=== PATIENT | female | born 1985 | race Two or more races ===

== ENCOUNTER 2021-11-03 14:20 | Inpatient (IN) ==
[2021-11-03] MEDS ORDERED: OXYTOCIN 30 UNITS/500 ML BAG IV PRN ×2 (15:26→15:48)
--- NOTE | 2021-11-03 15:36 | History & Physical Report ---
Date of Service November 03, 2021 Assessment & Plan (1) Spontaneous rupture of amniotic membranes: Plan: 36-year-old -0-1-0 at 38 weeks and 2 days of gestation presenting with spontaneous rupture of membranes at term, was complicated by GDM A2, on insulin, GBS positive, Obesity during , Vital signs stable afebrile, heart rate reassuring, Not in labor, no regular contractions but favorable cervix, Recommended admission, labs, vancomycin for GBS, fingersticks and cover with insulin and induction of labor for SROM at term, recommended oxytocin per protocol, Patient understands all and agrees with plan and recommendations, All questions were answered. (2) GBS (group B Streptococcus carrier), +RV culture, currently : History of Present Illness Primary Care Provider: NO PCP Patient is a 36-year-old -0-1-0 at 38 weeks and 2 days of gestation who was sent from office for gush of leakage of fluid which happened around 1:30 PM this afternoon. She was at the office for a routine OB visit and NST testing for GDM A2 and obesity during . While she was in the office she use the bathroom and had a big gush of fluid on the floor and has been leaking since then. It was clear with no blood. Patient denies contractions, abdominal pain, fever chills, nausea or vomiting. She reports good movements. has been complicated by, 1. Gestational diabetes on insulin, GDM A2, on 15 units of long-acting insulin at night, 2. GBS positive, allergic to penicillin, 3. Obesity during Allergies Allergy/AdvReac Type Severity Reaction Status Date / Time Penicillins Allergy Hives Verified 11/03/21 14:51 Sulfa (Sulfonamide Allergy Hives Verified 11/03/21 14:51 Antibiotics) Home Medications Medication Instructions Recorded Confirmed Type docusate sodium 50 mg capsule 50 mg PO DAILY 11/03/21 11/03/21 History insulin glargine 100 unit/mL (3 15 unit SUBCUT QPM 11/03/21 11/03/21 History mL) subcutaneous pen (Lantus Solostar U-100 Insulin) prenat.vits,larry,[id number] 1 tab PO DAILY 11/03/21 11/03/21 History Patient History Medical History (Updated 11/03/21 @ 15:34 by Annalisa Valadez MD) Abscess Gestational diabetes Surgical History H/O wisdom tooth extraction Social History Smoking Status: Never smoker Hx Alcohol Use: No Hx Substance Use: No Preferred Language: [place] Communication Ability: Effective Superintendent Overhead Distribution Required: No Beliefs That Will Affect Care: None marital status: Single Current Living Situation: Spouse Other Information That Helps Us Care for You: No Feels Safe at Home: Yes Safety Concerns: Feels Safe At This Time Assistive Devices: None OB History h/o first trimester SAB in 2019 PATIENT SUPPORT ASSISTANT History Chun denies history of genital herpes or gonorrhea. She had chlamydia in 2019 and has been treated and tested negative after. She is with a different partner now but she has had him only during this . Her chlamydia culture was negative during this . Review of Systems as per Subjective / HPI Physical Exam Constitutional: well developed, well nourished and + obese Not in acute distress, comfortable Gastrointestinal (Abdomen): normal bowel sounds, soft, nontender, no hepatosplenomegaly (Gravid, nontender, Joce 7 to 8 pounds) Genitourinary: normal external appearance (Wet) Speculum/Bimanual Exam: normal appearance of the vagina (Grossly ruptured clear amniotic fluid, nitrazine positive) OB Exam Abdomen: + vertex Manual OB Exam: + cervical dilation 3 cm, + cervical effacement 40% and + station -2 OB Exam Monitor Tracing: + external uterine monitor used (No contractions) and + category I Results & Data ([facility]) Vital Signs (Past 12 Hours) Vital Signs Temp Pulse Resp BP 11/03/21 15:00 93 H 138/78 11/03/21 14:54 36.7 C 20 11/03/21 14:37 112 H 135/89
[2021-11-03] MEDS ORDERED: VANCOMYCIN HCL 2,000 MG in SODIUM CHLORIDE 0.9% 500 ML IV STA (15:43)
[2021-11-03 15:50] LABS: Hematocrit (blood only) 35.1 % (37-47); Hemoglobin 11.8 g/dL (12.0-16.0); Mean Corpuscular Hemoglobin 30.3 pg (25-34); Mean Corpuscular Hgb Conc 33.6 g/dL (32-36); Mean Platelet Volume 11.4 fL (7.4-10.4); Platelet Count 183 K/uL (130-400); RDW Coefficient of Variation 14.2 % (11.5-14.5); RDW Standard Deviation 47.1 fL (36.4-46.3); White Blood Count 7.37 K/uL (4.8-10.8)
[2021-11-03 16:19] LABS: Albumin Globulin Ratio 1.1 (0.9-2); Albumin Level 3.3 gm/dl (3.4-5.0); BUN Creatinine Ratio 23.5 (10-20); Bilirubin,Total 0.2 mg/dl (0.2-1.0); Calcium 8.8 mg/dl (8.5-10.1); Creatinine Clr Calc Pharmacy 114.7 ml/min; Est GFR (African American) 102.9 ml/min; Est GFR (Non-African American) 88.8 ml/min; Globulin 3.1 gm/dl (2.5-4.0); Potassium 4.2 mmol/L (3.5-5.1); Total Protein 6.4 gm/dl (6.0-8.3)
--- NOTE | 2021-11-03 18:18 | Obstetrical Progress Note ---
Date of Service November 03, 2021 Assessment & Plan Admission and Anticipated Discharge Date Admission Date: November 03, 2021 Subjective Patient is reevaluated Feels well, no complaints No ctxs/abdominal pain Ate dinner Vancomycin is being given FHR categ I Bed side US: vertex Labs normal: Lab Results 11/03/21 11/03/21 11/03/21 Range/Units 15:36 15:36 15:36 WBC 7.37 (4.8-10.8) K/uL RBC 3.90 L (4.2-5.4) M/uL Hgb 11.8 L (12.0-16.0) g/dL Hct 35.1 L (37-47) % MCV 90.0 (80-100) fL MCH 30.3 (25-34) pg MCHC 33.6 (32-36) g/dL RDW Std Deviation 47.1 H (36.4-46.3) fL RDW Coeff of Brenda 14.2 (11.5-14.5) % Plt Count 183 (130-400) K/uL MPV 11.4 H (7.4-10.4) fL Sodium 135 L (136-145) mmol/L Potassium 4.2 (3.5-5.1) mmol/L Chloride 106 (98-107) mmol/L Carbon Dioxide 23 (21-32) mmol/L Anion Gap 6 (3-11) BUN 20 (6-23) mg/dl Creatinine 0.85 (0.6-1.2) mg/dl Est Cr Clr Drug Dosing 114.7 ml/min Est GFR ( Amer) 102.9 ml/min Est GFR (Non-Af Amer) 88.8 ml/min BUN/Creatinine Ratio 23.5 H (10-20) Glucose 90 (70-99(Fasting)) mg/dl Calcium 8.8 (8.5-10.1) mg/dl Total Bilirubin 0.2 (0.2-1.0) mg/dl AST 12 L (13-39) U/L ALT 9 (7-52) U/L Alkaline Phosphatase 88 (34-104) U/L Total Protein 6.4 (6.0-8.3) gm/dl Albumin 3.3 L (3.4-5.0) gm/dl Globulin 3.1 (2.5-4.0) gm/dl Albumin/Globulin Ratio 1.1 (0.9-2) SARS-CoV-2, RNA, NAAT (NEGATIVE) Blood Type A Positive Antibody Screen NEGATIVE 11/03/21 Range/Units 15:50 WBC (4.8-10.8) K/uL RBC (4.2-5.4) M/uL Hgb (12.0-16.0) g/dL Hct (37-47) % MCV (80-100) fL MCH (25-34) pg MCHC (32-36) g/dL RDW Std Deviation (36.4-46.3) fL RDW Coeff of Brenda (11.5-14.5) % Plt Count (130-400) K/uL MPV (7.4-10.4) fL Sodium (136-145) mmol/L Potassium (3.5-5.1) mmol/L Chloride (98-107) mmol/L Carbon Dioxide (21-32) mmol/L Anion Gap (3-11) BUN (6-23) mg/dl Creatinine (0.6-1.2) mg/dl Est Cr Clr Drug Dosing ml/min Est GFR ( Amer) ml/min Est GFR (Non-Af Amer) ml/min BUN/Creatinine Ratio (10-20) Glucose (70-99(Fasting)) mg/dl Calcium (8.5-10.1) mg/dl Total Bilirubin (0.2-1.0) mg/dl AST (13-39) U/L ALT (7-52) U/L Alkaline Phosphatase (34-104) U/L Total Protein (6.0-8.3) gm/dl Albumin (3.4-5.0) gm/dl Globulin (2.5-4.0) gm/dl Albumin/Globulin Ratio (0.9-2) SARS-CoV-2, RNA, NAAT NEGATIVE (NEGATIVE) Blood Type Antibody Screen Plan FS 2 hours after dinner Start low dose Oxytocin per protocol Results & Data ([facility]) Vital Signs (Past 12 Hours) Vital Signs Temp Pulse Resp BP 11/03/21 15:00 93 H 138/78 11/03/21 14:54 36.7 C 20 11/03/21 14:37 112 H 135/89
--- NOTE | 2021-11-03 22:01 | Obstetrical Progress Note ---
Date of Service November 03, 2021 Assessment & Plan Admission and Anticipated Discharge Date Admission Date: November 03, 2021 Subjective Patient started to feel contractions every 3 minutes, mildly painful but she d oes not need any pain medication or epidural. Still leaking clear fluid. Baby is moving. Vital signs stable afebrile, heart rate category 1, [place] is monitoring contractions every 2 to 3 minutes, oxytocin is at 14 mIU/min, Cervix is 3 to 4 cm dilated, 50% effaced, head is at -3 station, Continue to monitor closely, Continue with IV vancomycin and oxytocin. Results & Data ([facility]) Vital Signs (Past 12 Hours) Vital Signs Temp Pulse Resp BP Pulse Ox 11/03/21 21:58 64 140/84 11/03/21 21:57 62 99 11/03/21 21:49 36.4 C L 16 11/03/21 21:26 68 128/73 11/03/21 20:55 67 102/68 11/03/21 20:30 36.4 C L 18 11/03/21 20:25 70 125/78 11/03/21 19:55 58 L 128/71 11/03/21 19:25 36.6 C 16 11/03/21 19:08 67 141/81 H 11/03/21 15:00 93 H 138/78 11/03/21 14:54 36.7 C 20 11/03/21 14:37 112 H 135/89
[2021-11-03] MEDS ORDERED: VANCOMYCIN CONSULT ACTIVE PRN (22:09)
[2021-11-03] MEDS ORDERED: ePHEDrine sulfate 50 MG/ML AMP ONE (23:09)
[2021-11-03] MEDS ORDERED: fentaNYL citrate 100 MCG/2 ML VIAL ONE ×2 (23:09→23:54)
[2021-11-03] MEDS ORDERED: BUPIVACAINE 0.25% 30 ML VIAL ONE (23:10)
[2021-11-03] MEDS ORDERED: SODIUM CHLORIDE 0.9% INJ 10 ML VIAL ONE (23:10)
[2021-11-03] MEDS ORDERED: fentaNYL 2MCG/ML ROPIVACAINE 1.25MG/ML 100 ML BAG EPI ONE (23:10)
[2021-11-03] MEDS: LACTATED RINGER'S 1,000 ML IV PRN (23:25)
[2021-11-03] MEDS ORDERED: ONDANSETRON INJ 2 MG/ML 2 ML VIAL IV PRN (23:46)
[2021-11-03] MEDS ORDERED: NALOXONE HCL 1 MG in SODIUM CHLORIDE 0.9% 1000ML 1,000 ML IV PRN (23:46)
[2021-11-03] MEDS ORDERED: NALBUPHINE HCL INJ 10 MG/ML AMP IV PRN (23:46)
[2021-11-03] MEDS ORDERED: NALOXONE HCL 0.4 MG/1 ML VIAL/CARP IV PRN (23:46)
[2021-11-03] MEDS ORDERED: diphenhydrAMINE 50 MG/ML VIAL IV PRN (23:46)
[2021-11-03] MEDS ORDERED: ePHEDrine sulfate 50 MG/ML AMP IV PRN (23:46)
[2021-11-03] MEDS ORDERED: fentaNYL 2MCG/ML ROPIVACAINE 1.25MG/ML 100 ML BAG EPI PRN (23:46)
--- NOTE | 2021-11-03 23:48 | Anesthesiology Consultation ---
Date of Service November 03, 2021 Assessment & Plan Chart Review Chart Review: Patient NOT seen in Pre Admission Testing and Acceptable Risk for Labor Epidural Consults Requested none ASA ASA3 Proposed Anesthesia Anesthesia Type: Labor Epidural and CSE Risk / Benefits Reviewed With: PT / POA / Parent / Guardian, Accepts Plan and Informed Consent Obtained History Height/Weight Height: 5 ft 5 in Weight: 111.13 kg Allergies Allergy/AdvReac Type Severity Reaction Status Date / Time Penicillins Allergy Hives Verified 11/03/21 14:51 Sulfa (Sulfonamide Allergy Hives Verified 11/03/21 14:51 Antibiotics) Medications Home Medications Medication Instructions Recorded Confirmed Last Taken docusate sodium 50 mg capsule 50 mg PO DAILY 11/03/21 11/03/21 Unknown insulin glargine 100 unit/mL (3 15 unit SUBCUT QPM 11/03/21 11/03/21 1 Day Ago mL) subcutaneous pen (Lantus ~11/02/21 Solostar U-100 Insulin) prenat.vits,larry,[id number] 1 tab PO DAILY 11/03/21 11/03/21 Unknown Active Medications Generic Name Dose Route Start Last Admin Trade Name Freq PRN Reason Stop Dose Admin Lactated Ringer's 1,000 mls @ 150 mls/hr 11/03/21 15:26 11/03/21 23:25 Lr IV 11/05/21 15:25 999 mls/hr .[id number] PRN Administration L&D Protocol Protocol Oxytocin 30 units in 500 mls @ 12 mls/hr 11/03/21 15:48 11/03/21 21:13 Pitocin IV 11/05/21 15:47 0.72 units/hr .Q24H PRN 12 mls/hr Labor Induction/Augmentation Titration Protocol 0.72 UNITS/HR NPO Date Last Intake of Fluids: 11/03/21 Time Last Intake of Fluids: 23:00 Date Last Intake of Solids: 11/03/21 Time Last Intake of Solids: 13:00 Past Medical History Medical History Abscess Gestational diabetes Obesity Exercise / Class Metabolic Activity II 4-5 Yardwork/Stairs/Walk up hill Past Surgical History Surgical History H/O wisdom tooth extraction Past Anesthesia History No Hx of Anesthesia Complications and No Family Hx of Anesthesia Complications History of PONV No Hx of PONV and No Hx of Motion Sickness Social History Smoking Status: Never smoker Hx Alcohol Use: No Hx Substance Use: No substance use type: does not use Review of Systems no chest pain or sob Physical Exam Vital Signs Last Vital Signs Temp 36.4 C L 11/03/21 22:00 Pulse 82 11/03/21 23:42 Resp 16 11/03/21 22:00 BP 139/80 11/03/21 23:42 Pulse Ox 100 11/03/21 23:42 Constitutional + obese ENMT Mouth: no TMJ abnormality Thyromental Distance: > or= 3.5 Finger Breadths Mallampati Class: II Neck normal visual inspection Respiratory normal respiratory effort Auscultation: lungs clear to auscultation bilaterally Cardiovascular Rate/Rhythm: regular rate and regular rhythm Musculoskeletal Spine: normal cervical ROM Neurologic moves all extremities Psychiatric Orientation: alert and oriented x 3 Testing Laboratory Results 11/03/21 15:36 11/03/21 15:36 Blood Type A Positive 11/03/21 15:36 Antibody Screen NEGATIVE 11/03/21 15:36 11/03/21 19:46 POC Glucose 79
[2021-11-04] MEDS ORDERED: VANCOMYCIN HCL 1,500 MG in SODIUM CHLORIDE 0.9% 500 ML IV ONE (00:15)
[2021-11-04] MEDS ORDERED: VANCOMYCIN HCL 1,750 MG in SODIUM CHLORIDE 0.9% 500 ML IV SCH (00:15)
--- NOTE | 2021-11-04 01:06 | Obstetrical Progress Note ---
Date of Service November 04, 2021 Assessment & Plan Admission and Anticipated Discharge Date Admission Date: November 03, 2021 Subjective Patient became painful and ask for epidural. She has received epidural and now comfortable. heart rate had deceleration after the epidural most likely from maternal hypertension. The mom was given ephedrine and then heart rate came back to 130s with good accelerations and moderate variability, category 1. Vital signs stable afebrile, 2nd dose of Vancomycin is being infused Vaginal exam, cervix is 4-5 cm dilated 70% effaced head is at -2 station, nursing station had difficulty monitoring the baby due to maternal body habitus and desired scalp electrode. FSE is placed without difficulty. Continue to monitor closely, [place] to gravity. Results & Data ([facility]) Vital Signs (Past 12 Hours) Vital Signs Temp Pulse Resp BP Pulse Ox 11/04/21 00:56 82 99 11/04/21 00:51 64 99 11/04/21 00:48 104 H 114/74 11/04/21 00:46 78 126/63 99 11/04/21 00:44 74 136/65 11/04/21 00:42 86 112/66 11/04/21 00:41 79 99 11/04/21 00:40 64 122/67 11/04/21 00:38 75 108/58 L 11/04/21 00:36 69 107/57 L 98 11/04/21 00:35 73 108/67 11/04/21 00:33 81 92 11/04/21 00:32 53 L 89/48 L 11/04/21 00:31 58 L 96 11/04/21 00:30 54 L 87/47 L 11/04/21 00:28 61 89/48 L 11/04/21 00:26 63 96/50 L 96 11/04/21 00:24 62 94/51 L 11/04/21 00:22 76 124/70 11/04/21 00:21 98 H 98 11/04/21 00:20 58 L 120/61 11/04/21 00:18 68 110/58 L 11/04/21 00:16 92 H 106/59 L 97 11/04/21 00:14 80 111/57 L 11/04/21 00:12 83 110/66 11/04/21 00:11 80 98 11/04/21 00:10 100 H 107/67 11/04/21 00:08 80 116/61 11/04/21 00:06 93 H 99 11/04/21 00:05 78 118/67 11/04/21 00:02 75 137/79 11/04/21 00:01 77 97 11/04/21 00:00 71 133/88 11/03/21 23:56 72 164/85 H 100 11/03/21 23:54 76 146/88 H 11/03/21 23:52 76 164/88 H 11/03/21 23:51 78 98 11/03/21 23:47 80 100 11/03/21 23:42 82 139/80 100 11/03/21 23:37 77 96 11/03/21 23:32 81 100 11/03/21 23:27 86 99 11/03/21 23:25 71 137/84 11/03/21 23:22 56 L 100 11/03/21 23:17 75 99 11/03/21 23:12 81 100 11/03/21 23:07 73 100 11/03/21 23:02 61 99 11/03/21 22:59 80 166/92 H 11/03/21 22:57 79 100 11/03/21 22:47 69 99 11/03/21 22:42 70 99 11/03/21 22:37 74 99 11/03/21 22:32 69 100 11/03/21 22:27 69 99 11/03/21 22:25 71 114/68 11/03/21 22:22 73 99 11/03/21 22:17 72 99 11/03/21 22:12 68 99 11/03/21 22:07 72 99 11/03/21 22:02 69 98 11/03/21 22:00 36.4 C L 16 11/03/21 21:58 64 140/84 11/03/21 21:57 62 99 11/03/21 21:49 36.4 C L 16 11/03/21 21:26 68 128/73 11/03/21 20:55 67 102/68 11/03/21 20:30 36.4 C L 18 11/03/21 20:25 70 125/78 11/03/21 19:55 58 L 128/71 11/03/21 19:25 36.6 C 16 11/03/21 19:08 67 141/81 H 11/03/21 15:00 93 H 138/78 11/03/21 14:54 36.7 C 20 11/03/21 14:37 112 H 135/89
[2021-11-04] MEDS ORDERED: VANCOMYCIN HCL 1,750 MG in SODIUM CHLORIDE 0.9% 500 ML IV PRN (03:00)
[2021-11-04] MEDS: LACTATED RINGER'S 1,000 ML IV PRN ×2 (07:06→09:47)
--- NOTE | 2021-11-04 07:07 | Obstetrical Progress Note ---
Date of Service November 04, 2021 Assessment & Plan Admission and Anticipated Discharge Date Admission Date: November 03, 2021 Subjective Patient is comfortable, she slept and just woke up VE: 7-8 cm/ 80%/ -1 FHR had been categ I, had variable decelerations to 90's earlier with good variability and accelerations in between [place]: ctxs q 2-3 min Continue to monitor closely Results & Data ([facility]) Vital Signs (Past 12 Hours) Vital Signs Temp Pulse Resp BP Pulse Ox 11/04/21 07:01 70 99 11/04/21 06:56 103 H 99 11/04/21 06:51 59 L 99 11/04/21 06:49 81 87/52 L 11/04/21 06:46 88 100 11/04/21 06:42 93 H 92 11/04/21 06:41 84 99 11/04/21 06:36 113 H 98 11/04/21 06:35 70 90/53 L 11/04/21 06:31 81 98 11/04/21 06:30 36.7 C 18 11/04/21 06:26 124 H 100 11/04/21 06:21 69 99 11/04/21 06:19 72 121/68 11/04/21 06:16 76 99 11/04/21 06:11 71 98 11/04/21 06:06 78 98 11/04/21 06:05 68 121/68 11/04/21 06:01 70 99 11/04/21 05:56 70 97 11/04/21 05:51 80 99 11/04/21 05:50 67 127/70 11/04/21 05:46 67 98 11/04/21 05:41 58 L 98 11/04/21 05:36 68 128/71 98 11/04/21 05:31 69 98 11/04/21 05:26 66 98 11/04/21 05:21 69 98 11/04/21 05:19 65 119/67 11/04/21 05:16 65 98 11/04/21 05:11 67 99 11/04/21 05:06 70 98 11/04/21 05:04 75 116/67 11/04/21 05:01 70 99 11/04/21 04:56 62 98 11/04/21 04:51 66 99 11/04/21 04:49 75 120/67 11/04/21 04:46 66 98 11/04/21 04:41 66 98 11/04/21 04:36 75 98 11/04/21 04:34 73 119/66 11/04/21 04:31 68 98 11/04/21 04:26 68 97 11/04/21 04:21 67 97 11/04/21 04:19 71 113/63 11/04/21 04:16 75 98 11/04/21 04:11 64 98 11/04/21 04:06 68 98 11/04/21 04:04 75 116/63 11/04/21 04:01 74 98 11/04/21 03:56 69 98 11/04/21 03:51 69 99 11/04/21 03:50 69 118/65 11/04/21 03:46 70 99 11/04/21 03:41 73 99 11/04/21 03:36 73 98 11/04/21 03:35 69 113/65 11/04/21 03:31 71 98 11/04/21 03:26 70 98 11/04/21 03:21 70 98 11/04/21 03:19 77 119/68 11/04/21 03:16 74 98 11/04/21 03:11 69 98 11/04/21 03:06 70 97 11/04/21 03:04 71 119/69 11/04/21 03:01 72 97 11/04/21 02:56 58 L 97 11/04/21 02:51 70 97 11/04/21 02:49 68 119/70 11/04/21 02:46 67 98 11/04/21 02:41 74 98 11/04/21 02:36 73 98 11/04/21 02:34 77 117/69 11/04/21 02:31 73 96 11/04/21 02:26 76 97 11/04/21 02:21 68 97 11/04/21 02:19 94 H 104/60 11/04/21 02:16 74 97 11/04/21 02:11 68 97 11/04/21 02:06 71 97 11/04/21 02:04 71 109/61 11/04/21 02:01 69 97 11/04/21 01:56 83 99 11/04/21 01:51 90 99 11/04/21 01:50 80 119/72 11/04/21 01:46 61 97 11/04/21 01:41 71 97 11/04/21 01:36 72 97 11/04/21 01:34 73 112/62 11/04/21 01:31 68 97 11/04/21 01:26 67 100 11/04/21 01:21 74 99 11/04/21 01:19 73 121/66 11/04/21 01:16 84 97 11/04/21 01:11 86 98 11/04/21 01:06 78 119/65 98 11/04/21 01:01 76 98 11/04/21 00:56 82 99 11/04/21 00:51 64 99 11/04/21 00:48 104 H 114/74 11/04/21 00:46 78 126/63 99 11/04/21 00:44 74 136/65 11/04/21 00:42 86 112/66 11/04/21 00:41 79 99 11/04/21 00:40 64 122/67 11/04/21 00:38 75 108/58 L 11/04/21 00:36 69 107/57 L 98 11/04/21 00:35 73 108/67 11/04/21 00:33 81 92 11/04/21 00:32 53 L 89/48 L 11/04/21 00:31 58 L 96 11/04/21 00:30 54 L 87/47 L 11/04/21 00:28 61 89/48 L 11/04/21 00:26 63 96/50 L 96 11/04/21 00:24 62 94/51 L 11/04/21 00:22 76 124/70 11/04/21 00:21 98 H 98 11/04/21 00:20 58 L 120/61 11/04/21 00:18 68 110/58 L 11/04/21 00:16 92 H 106/59 L 97 11/04/21 00:14 80 111/57 L 11/04/21 00:12 83 110/66 11/04/21 00:11 80 98 11/04/21 00:10 100 H 107/67 11/04/21 00:08 80 116/61 11/04/21 00:06 93 H 99 11/04/21 00:05 78 118/67 11/04/21 00:02 75 137/79 11/04/21 00:01 77 97 11/04/21 00:00 71 133/88 11/03/21 23:56 72 164/85 H 100 11/03/21 23:54 76 146/88 H 11/03/21 23:52 76 164/88 H 11/03/21 23:51 78 98 11/03/21 23:47 80 100 11/03/21 23:42 82 139/80 100 11/03/21 23:37 77 96 11/03/21 23:32 81 100 11/03/21 23:27 86 99 11/03/21 23:25 71 137/84 11/03/21 23:22 56 L 100 11/03/21 23:17 75 99 11/03/21 23:12 81 100 11/03/21 23:07 73 100 11/03/21 23:02 61 99 11/03/21 22:59 80 166/92 H 11/03/21 22:57 79 100 11/03/21 22:47 69 99 11/03/21 22:42 70 99 11/03/21 22:37 74 99 11/03/21 22:32 69 100 11/03/21 22:27 69 99 11/03/21 22:25 71 114/68 11/03/21 22:22 73 99 11/03/21 22:17 72 99 11/03/21 22:12 68 99 11/03/21 22:07 72 99 11/03/21 22:02 69 98 11/03/21 22:00 36.4 C L 16 11/03/21 21:58 64 140/84 11/03/21 21:57 62 99 11/03/21 21:49 36.4 C L 16 11/03/21 21:26 68 128/73 11/03/21 20:55 67 102/68 11/03/21 20:30 36.4 C L 18 11/03/21 20:25 70 125/78 11/03/21 19:55 58 L 128/71 11/03/21 19:25 36.6 C 16 11/03/21 19:08 67 141/81 H
--- NOTE | 2021-11-04 07:45 | Obstetrical Progress Note ---
Date of Service November 04, 2021 Assessment & Plan Admission and Anticipated Discharge Date Admission Date: November 03, 2021 Subjective Patient is reevaluated FHR had decels to 90's after 4 ctxs Patient was in high fovler position and now changed to left lateral, Oxytocin was stopped and Nasal O2 was started VE: 9/ 90%/ 0, + accel after scalp stimulation FHR 140-150's, moderate variability, no more decels with last 2 contractions Continue to monitor closely Anticipate Results & Data ([facility]) Vital Signs (Past 12 Hours) Vital Signs Temp Pulse Resp BP Pulse Ox 11/04/21 07:41 60 100 11/04/21 07:36 67 100 11/04/21 07:34 72 106/62 11/04/21 07:31 68 100 11/04/21 07:26 65 100 11/04/21 07:21 71 100 11/04/21 07:20 72 103/59 L 11/04/21 07:16 92 H 100 11/04/21 07:11 67 99 11/04/21 07:06 65 104/60 98 11/04/21 07:05 62 102/58 L 11/04/21 07:01 70 99 11/04/21 06:56 103 H 99 11/04/21 06:51 59 L 99 11/04/21 06:49 81 87/52 L 11/04/21 06:46 88 100 11/04/21 06:42 93 H 92 11/04/21 06:41 84 99 11/04/21 06:36 113 H 98 11/04/21 06:35 70 90/53 L 11/04/21 06:31 81 98 11/04/21 06:30 36.7 C 18 11/04/21 06:26 124 H 100 11/04/21 06:21 69 99 11/04/21 06:19 72 121/68 11/04/21 06:16 76 99 11/04/21 06:11 71 98 11/04/21 06:06 78 98 11/04/21 06:05 68 121/68 11/04/21 06:01 70 99 11/04/21 05:56 70 97 11/04/21 05:51 80 99 11/04/21 05:50 67 127/70 11/04/21 05:46 67 98 11/04/21 05:41 58 L 98 11/04/21 05:36 68 128/71 98 11/04/21 05:31 69 98 11/04/21 05:26 66 98 11/04/21 05:21 69 98 11/04/21 05:19 65 119/67 11/04/21 05:16 65 98 11/04/21 05:11 67 99 11/04/21 05:06 70 98 11/04/21 05:04 75 116/67 11/04/21 05:01 70 99 11/04/21 04:56 62 98 11/04/21 04:51 66 99 11/04/21 04:49 75 120/67 11/04/21 04:46 66 98 11/04/21 04:41 66 98 11/04/21 04:36 75 98 11/04/21 04:34 73 119/66 11/04/21 04:31 68 98 11/04/21 04:26 68 97 11/04/21 04:21 67 97 11/04/21 04:19 71 113/63 11/04/21 04:16 75 98 11/04/21 04:11 64 98 11/04/21 04:06 68 98 11/04/21 04:04 75 116/63 11/04/21 04:01 74 98 11/04/21 03:56 69 98 11/04/21 03:51 69 99 11/04/21 03:50 69 118/65 11/04/21 03:46 70 99 11/04/21 03:41 73 99 11/04/21 03:36 73 98 11/04/21 03:35 69 113/65 11/04/21 03:31 71 98 11/04/21 03:26 70 98 11/04/21 03:21 70 98 11/04/21 03:19 77 119/68 11/04/21 03:16 74 98 11/04/21 03:11 69 98 11/04/21 03:06 70 97 11/04/21 03:04 71 119/69 11/04/21 03:01 72 97 11/04/21 02:56 58 L 97 11/04/21 02:51 70 97 11/04/21 02:49 68 119/70 11/04/21 02:46 67 98 11/04/21 02:41 74 98 11/04/21 02:36 73 98 11/04/21 02:34 77 117/69 11/04/21 02:31 73 96 11/04/21 02:26 76 97 11/04/21 02:21 68 97 11/04/21 02:19 94 H 104/60 11/04/21 02:16 74 97 11/04/21 02:11 68 97 11/04/21 02:06 71 97 11/04/21 02:04 71 109/61 11/04/21 02:01 69 97 11/04/21 01:56 83 99 11/04/21 01:51 90 99 11/04/21 01:50 80 119/72 11/04/21 01:46 61 97 11/04/21 01:41 71 97 11/04/21 01:36 72 97 11/04/21 01:34 73 112/62 11/04/21 01:31 68 97 11/04/21 01:26 67 100 11/04/21 01:21 74 99 11/04/21 01:19 73 121/66 11/04/21 01:16 84 97 11/04/21 01:11 86 98 11/04/21 01:06 78 119/65 98 11/04/21 01:01 76 98 11/04/21 00:56 82 99 11/04/21 00:51 64 99 11/04/21 00:48 104 H 114/74 11/04/21 00:46 78 126/63 99 11/04/21 00:44 74 136/65 11/04/21 00:42 86 112/66 11/04/21 00:41 79 99 11/04/21 00:40 64 122/67 11/04/21 00:38 75 108/58 L 11/04/21 00:36 69 107/57 L 98 11/04/21 00:35 73 108/67 11/04/21 00:33 81 92 11/04/21 00:32 53 L 89/48 L 11/04/21 00:31 58 L 96 11/04/21 00:30 54 L 87/47 L 11/04/21 00:28 61 89/48 L 11/04/21 00:26 63 96/50 L 96 11/04/21 00:24 62 94/51 L 11/04/21 00:22 76 124/70 11/04/21 00:21 98 H 98 11/04/21 00:20 58 L 120/61 11/04/21 00:18 68 110/58 L 11/04/21 00:16 92 H 106/59 L 97 11/04/21 00:14 80 111/57 L 11/04/21 00:12 83 110/66 11/04/21 00:11 80 98 11/04/21 00:10 100 H 107/67 11/04/21 00:08 80 116/61 11/04/21 00:06 93 H 99 11/04/21 00:05 78 118/67 11/04/21 00:02 75 137/79 11/04/21 00:01 77 97 11/04/21 00:00 71 133/88 11/03/21 23:56 72 164/85 H 100 11/03/21 23:54 76 146/88 H 11/03/21 23:52 76 164/88 H 11/03/21 23:51 78 98 11/03/21 23:47 80 100 11/03/21 23:42 82 139/80 100 11/03/21 23:37 77 96 11/03/21 23:32 81 100 11/03/21 23:27 86 99 11/03/21 23:25 71 137/84 11/03/21 23:22 56 L 100 11/03/21 23:17 75 99 11/03/21 23:12 81 100 11/03/21 23:07 73 100 11/03/21 23:02 61 99 11/03/21 22:59 80 166/92 H 11/03/21 22:57 79 100 11/03/21 22:47 69 99 11/03/21 22:42 70 99 11/03/21 22:37 74 99 11/03/21 22:32 69 100 11/03/21 22:27 69 99 11/03/21 22:25 71 114/68 11/03/21 22:22 73 99 11/03/21 22:17 72 99 11/03/21 22:12 68 99 11/03/21 22:07 72 99 11/03/21 22:02 69 98 11/03/21 22:00 36.4 C L 16 11/03/21 21:58 64 140/84 11/03/21 21:57 62 99 11/03/21 21:49 36.4 C L 16 11/03/21 21:26 68 128/73 11/03/21 20:55 67 102/68 11/03/21 20:30 36.4 C L 18 11/03/21 20:25 70 125/78 11/03/21 19:55 58 L 128/71
[2021-11-04] MEDS ORDERED: VANCOMYCIN CONSULT ACTIVE PRN (08:36)
[2021-11-04] MEDS ORDERED: VANCOMYCIN HCL 1,500 MG in SODIUM CHLORIDE 0.9% 500 ML IV SCH (09:15)
--- NOTE | 2021-11-04 10:02 | Labor Progress Brief Note ---
Date of Service November 04, 2021 Subjective Comfortable on epidural at this time, no complaints Assessment & Plan (1) Spontaneous rupture of amniotic membranes: Plan: Continue pit, anticipate (2) GBS (group B Streptococcus carrier), +RV culture, currently : Plan: Continue IV Vanc (3) White classification A2 gestational diabetes mellitus (GDM): Plan: Continue protocol Admission and Anticipated Discharge Date Admission Date: November 03, 2021 Physical Exam Physical Exam: FHT: baseline 130-135, mod variability, +accels, no decels, cat 1 tracing [place]: q2-3 min pit at 2 Cx: anterior lip/90/+1 Results & Data ([facility]) Vital Signs (Past 12 Hours) Vital Signs Temp Pulse Resp BP Pulse Ox 11/04/21 09:56 70 99 11/04/21 09:51 73 99 11/04/21 09:49 67 117/72 11/04/21 09:46 57 L 99 11/04/21 09:41 53 L 100 11/04/21 09:36 75 97 11/04/21 09:35 70 104/60 11/04/21 09:31 59 L 99 11/04/21 09:26 76 99 11/04/21 09:21 61 99 11/04/21 09:19 55 L 105/59 L 11/04/21 09:16 57 L 100 11/04/21 09:11 66 99 11/04/21 09:06 58 L 99 11/04/21 09:04 85 100/59 L 11/04/21 09:01 84 99 11/04/21 09:00 36.6 C 18 11/04/21 08:56 73 99 11/04/21 08:51 67 100 11/04/21 08:50 65 97/57 L 11/04/21 08:46 73 100 11/04/21 08:41 55 L 100 11/04/21 08:36 57 L 100 11/04/21 08:35 49 L 99/55 L 11/04/21 08:31 51 L 100 11/04/21 08:26 56 L 100 11/04/21 08:21 53 L 100 11/04/21 08:19 88 93/58 L 92 11/04/21 08:16 63 100 11/04/21 08:11 57 L 100 11/04/21 08:06 51 L 100 11/04/21 08:04 65 105/59 L 11/04/21 08:01 69 18 100 11/04/21 07:56 55 L 100 11/04/21 07:51 54 L 100 11/04/21 07:49 74 100/53 L 11/04/21 07:47 70 87/51 L 11/04/21 07:46 75 93/54 L 100 11/04/21 07:41 60 100 11/04/21 07:36 67 100 11/04/21 07:34 72 106/62 11/04/21 07:31 68 18 100 11/04/21 07:26 65 100 11/04/21 07:21 71 100 11/04/21 07:20 72 103/59 L 11/04/21 07:16 92 H 100 11/04/21 07:11 67 99 11/04/21 07:06 36.6 C 65 18 104/60 98 11/04/21 07:05 62 102/58 L 11/04/21 07:01 70 99 11/04/21 06:56 103 H 99 11/04/21 06:51 59 L 99 11/04/21 06:49 81 87/52 L 11/04/21 06:46 88 100 11/04/21 06:42 93 H 92 11/04/21 06:41 84 99 11/04/21 06:36 113 H 98 11/04/21 06:35 70 90/53 L 11/04/21 06:31 81 98 11/04/21 06:30 36.7 C 18 11/04/21 06:26 124 H 100 11/04/21 06:21 69 99 11/04/21 06:19 72 121/68 11/04/21 06:16 76 99 11/04/21 06:11 71 98 11/04/21 06:06 78 98 11/04/21 06:05 68 121/68 11/04/21 06:01 70 99 11/04/21 05:56 70 97 11/04/21 05:51 80 99 11/04/21 05:50 67 127/70 11/04/21 05:46 67 98 11/04/21 05:41 58 L 98 11/04/21 05:36 68 128/71 98 11/04/21 05:31 69 98 11/04/21 05:26 66 98 11/04/21 05:21 69 98 11/04/21 05:19 65 119/67 11/04/21 05:16 65 98 11/04/21 05:11 67 99 11/04/21 05:06 70 98 11/04/21 05:04 75 116/67 11/04/21 05:01 70 99 11/04/21 04:56 62 98 11/04/21 04:51 66 99 11/04/21 04:49 75 120/67 11/04/21 04:46 66 98 11/04/21 04:41 66 98 11/04/21 04:36 75 98 11/04/21 04:34 73 119/66 11/04/21 04:31 68 98 11/04/21 04:26 68 97 11/04/21 04:21 67 97 11/04/21 04:19 71 113/63 11/04/21 04:16 75 98 11/04/21 04:11 64 98 11/04/21 04:06 68 98 11/04/21 04:04 75 116/63 11/04/21 04:01 74 98 11/04/21 03:56 69 98 11/04/21 03:51 69 99 11/04/21 03:50 69 118/65 11/04/21 03:46 70 99 11/04/21 03:41 73 99 11/04/21 03:36 73 98 11/04/21 03:35 69 113/65 11/04/21 03:31 71 98 11/04/21 03:26 70 98 11/04/21 03:21 70 98 11/04/21 03:19 77 119/68 11/04/21 03:16 74 98 11/04/21 03:11 69 98 11/04/21 03:06 70 97 11/04/21 03:04 71 119/69 11/04/21 03:01 72 97 11/04/21 02:56 58 L 97 11/04/21 02:51 70 97 11/04/21 02:49 68 119/70 11/04/21 02:46 67 98 11/04/21 02:41 74 98 11/04/21 02:36 73 98 11/04/21 02:34 77 117/69 11/04/21 02:31 73 96 11/04/21 02:26 76 97 11/04/21 02:21 68 97 11/04/21 02:19 94 H 104/60 11/04/21 02:16 74 97 11/04/21 02:11 68 97 11/04/21 02:06 71 97 11/04/21 02:04 71 109/61 11/04/21 02:01 69 97 11/04/21 01:56 83 99 11/04/21 01:51 90 99 11/04/21 01:50 80 119/72 11/04/21 01:46 61 97 11/04/21 01:41 71 97 11/04/21 01:36 72 97 11/04/21 01:34 73 112/62 11/04/21 01:31 68 97 11/04/21 01:26 67 100 11/04/21 01:21 74 99 11/04/21 01:19 73 121/66 11/04/21 01:16 84 97 11/04/21 01:11 86 98 11/04/21 01:06 78 119/65 98 11/04/21 01:01 76 98 11/04/21 00:56 82 99 11/04/21 00:51 64 99 11/04/21 00:48 104 H 114/74 11/04/21 00:46 78 126/63 99 11/04/21 00:44 74 136/65 11/04/21 00:42 86 112/66 11/04/21 00:41 79 99 11/04/21 00:40 64 122/67 11/04/21 00:38 75 108/58 L 11/04/21 00:36 69 107/57 L 98 11/04/21 00:35 73 108/67 11/04/21 00:33 81 92 11/04/21 00:32 53 L 89/48 L 11/04/21 00:31 58 L 96 11/04/21 00:30 54 L 87/47 L 11/04/21 00:28 61 89/48 L 11/04/21 00:26 63 96/50 L 96 11/04/21 00:24 62 94/51 L 11/04/21 00:22 76 124/70 11/04/21 00:21 98 H 98 11/04/21 00:20 58 L 120/61 11/04/21 00:18 68 110/58 L 11/04/21 00:16 92 H 106/59 L 97 11/04/21 00:14 80 111/57 L 11/04/21 00:12 83 110/66 11/04/21 00:11 80 98 11/04/21 00:10 100 H 107/67 11/04/21 00:08 80 116/61 11/04/21 00:06 93 H 99 11/04/21 00:05 78 118/67 11/04/21 00:02 75 137/79 11/04/21 00:01 77 97 11/04/21 00:00 71 133/88 11/03/21 23:56 72 164/85 H 100 11/03/21 23:54 76 146/88 H 11/03/21 23:52 76 164/88 H 11/03/21 23:51 78 98 11/03/21 23:47 80 100 11/03/21 23:42 82 139/80 100 11/03/21 23:37 77 96 11/03/21 23:32 81 100 11/03/21 23:27 86 99 11/03/21 23:25 71 137/84 11/03/21 23:22 56 L 100 11/03/21 23:17 75 99 11/03/21 23:12 81 100 11/03/21 23:07 73 100 11/03/21 23:02 61 99 11/03/21 22:59 80 166/92 H 11/03/21 22:57 79 100 11/03/21 22:47 69 99 11/03/21 22:42 70 99 11/03/21 22:37 74 99 11/03/21 22:32 69 100 11/03/21 22:27 69 99 11/03/21 22:25 71 114/68 11/03/21 22:22 73 99 11/03/21 22:17 72 99 11/03/21 22:12 68 99 11/03/21 22:07 72 99 11/03/21 22:02 69 98
--- NOTE | 2021-11-04 11:51 | Labor Progress Brief Note ---
Date of Service November 04, 2021 Subjective Comfortable on epidural at this time, no complaints More pressure Assessment & Plan (1) Spontaneous rupture of amniotic membranes: Plan: Continue pit, start pushing with nursing staff anticipate (2) GBS (group B Streptococcus carrier), +RV culture, currently : Plan: Continue IV Vanc (3) White classification A2 gestational diabetes mellitus (GDM): Plan: Continue protocol Admission and Anticipated Discharge Date Admission Date: November 03, 2021 Physical Exam Physical Exam: FHT: baseline 130-135, mod variability, +accels, no decels, cat 1 tracing [place]: q2 min pit at 6 Cx: 10/100/+1 and almost to +2 with pushing Results & Data ([facility]) Vital Signs (Past 12 Hours) Vital Signs Temp Pulse Resp BP Pulse Ox 11/04/21 11:46 69 99 11/04/21 11:41 55 L 100 11/04/21 11:36 58 L 100 11/04/21 11:34 53 L 108/67 11/04/21 11:31 53 L 100 11/04/21 11:30 18 11/04/21 11:26 63 99 11/04/21 11:21 71 100 11/04/21 11:20 51 L 117/73 11/04/21 11:16 73 100 11/04/21 11:11 71 100 11/04/21 11:06 59 L 100 11/04/21 11:05 85 111/71 11/04/21 11:01 81 100 11/04/21 11:00 36.5 C 18 11/04/21 10:56 63 100 11/04/21 10:51 65 100 11/04/21 10:50 87 114/73 11/04/21 10:46 86 98 11/04/21 10:41 63 97 11/04/21 10:36 79 98 11/04/21 10:35 64 20 114/74 11/04/21 10:31 74 97 11/04/21 10:30 18 11/04/21 10:26 56 L 99 11/04/21 10:21 57 L 99 11/04/21 10:19 72 129/80 93 11/04/21 10:16 58 L 97 11/04/21 10:11 70 97 11/04/21 10:06 66 97 11/04/21 10:04 61 137/75 03/26/22 10:01 53 L 100 11/04/21 10:00 18 11/04/21 09:56 70 99 11/04/21 09:51 73 99 11/04/21 09:49 67 117/72 11/04/21 09:46 57 L 99 11/04/21 09:41 53 L 100 11/04/21 09:36 75 97 11/04/21 09:35 70 104/60 11/04/21 09:31 59 L 99 11/04/21 09:30 18 11/04/21 09:26 76 99 11/04/21 09:21 61 99 11/04/21 09:19 55 L 105/59 L 11/04/21 09:16 57 L 100 11/04/21 09:11 66 99 11/04/21 09:06 58 L 99 11/04/21 09:04 85 100/59 L 11/04/21 09:01 84 99 11/04/21 09:00 36.6 C 18 11/04/21 08:56 73 99 11/04/21 08:51 67 100 11/04/21 08:50 65 97/57 L 11/04/21 08:46 73 100 11/04/21 08:41 55 L 100 11/04/21 08:36 57 L 100 11/04/21 08:35 49 L 99/55 L 11/04/21 08:31 51 L 100 11/04/21 08:26 56 L 100 11/04/21 08:21 53 L 100 11/04/21 08:19 88 93/58 L 92 11/04/21 08:16 63 100 11/04/21 08:11 57 L 100 11/04/21 08:06 51 L 100 11/04/21 08:04 65 105/59 L 11/04/21 08:01 69 18 100 11/04/21 07:56 55 L 100 11/04/21 07:51 54 L 100 11/04/21 07:49 74 100/53 L 11/04/21 07:47 70 87/51 L 11/04/21 07:46 75 93/54 L 100 11/04/21 07:41 60 100 11/04/21 07:36 67 100 11/04/21 07:34 72 106/62 11/04/21 07:31 68 18 100 11/04/21 07:26 65 100 11/04/21 07:21 71 100 11/04/21 07:20 72 103/59 L 11/04/21 07:16 92 H 100 11/04/21 07:11 67 99 11/04/21 07:06 36.6 C 65 18 104/60 98 11/04/21 07:05 62 102/58 L 11/04/21 07:01 70 99 11/04/21 06:56 103 H 99 11/04/21 06:51 59 L 99 11/04/21 06:49 81 87/52 L 11/04/21 06:46 88 100 11/04/21 06:42 93 H 92 11/04/21 06:41 84 99 11/04/21 06:36 113 H 98 11/04/21 06:35 70 90/53 L 11/04/21 06:31 81 98 11/04/21 06:30 36.7 C 18 11/04/21 06:26 124 H 100 11/04/21 06:21 69 99 11/04/21 06:19 72 121/68 11/04/21 06:16 76 99 11/04/21 06:11 71 98 11/04/21 06:06 78 98 11/04/21 06:05 68 121/68 11/04/21 06:01 70 99 11/04/21 05:56 70 97 11/04/21 05:51 80 99 11/04/21 05:50 67 127/70 11/04/21 05:46 67 98 11/04/21 05:41 58 L 98 11/04/21 05:36 68 128/71 98 11/04/21 05:31 69 98 11/04/21 05:26 66 98 11/04/21 05:21 69 98 11/04/21 05:19 65 119/67 11/04/21 05:16 65 98 11/04/21 05:11 67 99 11/04/21 05:06 70 98 11/04/21 05:04 75 116/67 11/04/21 05:01 70 99 11/04/21 04:56 62 98 11/04/21 04:51 66 99 11/04/21 04:49 75 120/67 11/04/21 04:46 66 98 03/26/22 04:41 66 98 11/04/21 04:36 75 98 11/04/21 04:34 73 119/66 11/04/21 04:31 68 98 11/04/21 04:26 68 97 11/04/21 04:21 67 97 11/04/21 04:19 71 113/63 11/04/21 04:16 75 98 11/04/21 04:11 64 98 11/04/21 04:06 68 98 11/04/21 04:04 75 116/63 11/04/21 04:01 74 98 11/04/21 03:56 69 98 11/04/21 03:51 69 99 11/04/21 03:50 69 118/65 11/04/21 03:46 70 99 11/04/21 03:41 73 99 11/04/21 03:36 73 98 11/04/21 03:35 69 113/65 11/04/21 03:31 71 98 11/04/21 03:26 70 98 11/04/21 03:21 70 98 11/04/21 03:19 77 119/68 11/04/21 03:16 74 98 11/04/21 03:11 69 98 11/04/21 03:06 70 97 11/04/21 03:04 71 119/69 11/04/21 03:01 72 97 11/04/21 02:56 58 L 97 11/04/21 02:51 70 97 11/04/21 02:49 68 119/70 11/04/21 02:46 67 98 11/04/21 02:41 74 98 11/04/21 02:36 73 98 11/04/21 02:34 77 117/69 11/04/21 02:31 73 96 11/04/21 02:26 76 97 11/04/21 02:21 68 97 11/04/21 02:19 94 H 104/60 11/04/21 02:16 74 97 11/04/21 02:11 68 97 11/04/21 02:06 71 97 11/04/21 02:04 71 109/61 11/04/21 02:01 69 97 11/04/21 01:56 83 99 11/04/21 01:51 90 99 11/04/21 01:50 80 119/72 11/04/21 01:46 61 97 11/04/21 01:41 71 97 11/04/21 01:36 72 97 11/04/21 01:34 73 112/62 11/04/21 01:31 68 97 11/04/21 01:26 67 100 11/04/21 01:21 74 99 11/04/21 01:19 73 121/66 11/04/21 01:16 84 97 11/04/21 01:11 86 98 11/04/21 01:06 78 119/65 98 11/04/21 01:01 76 98 11/04/21 00:56 82 99 11/04/21 00:51 64 99 11/04/21 00:48 104 H 114/74 11/04/21 00:46 78 126/63 99 11/04/21 00:44 74 136/65 11/04/21 00:42 86 112/66 11/04/21 00:41 79 99 11/04/21 00:40 64 122/67 11/04/21 00:38 75 108/58 L 11/04/21 00:36 69 107/57 L 98 11/04/21 00:35 73 108/67 11/04/21 00:33 81 92 11/04/21 00:32 53 L 89/48 L 11/04/21 00:31 58 L 96 11/04/21 00:30 54 L 87/47 L 11/04/21 00:28 61 89/48 L 11/04/21 00:26 63 96/50 L 96 11/04/21 00:24 62 94/51 L 11/04/21 00:22 76 124/70 11/04/21 00:21 98 H 98 11/04/21 00:20 58 L 120/61 11/04/21 00:18 68 110/58 L 11/04/21 00:16 92 H 106/59 L 97 11/04/21 00:14 80 111/57 L 11/04/21 00:12 83 110/66 11/04/21 00:11 80 98 11/04/21 00:10 100 H 107/67 11/04/21 00:08 80 116/61 11/04/21 00:06 93 H 99 11/04/21 00:05 78 118/67 11/04/21 00:02 75 137/79 11/04/21 00:01 77 97 11/04/21 00:00 71 133/88 11/03/21 23:56 72 164/85 H 100 11/03/21 23:54 76 146/88 H 11/03/21 23:52 76 164/88 H 11/03/21 23:51 78 98
[2021-11-04] MEDS ORDERED: oxyCODONE/ACETAMINOPHEN 5mg/325mg TAB PO PRN (13:05)
[2021-11-04] MEDS ORDERED: OXYTOCIN 30 UNITS/500 ML BAG IV PRN (13:05)
[2021-11-04] MEDS ORDERED: DIPHTHERIA/TETANUS/PERTUSSIS 0.5 ML SYR/VIAL IM ONE (13:05)
[2021-11-04] MEDS ORDERED: BENZOCAINE 20% AER SPR 82.5 GM CAN EXT PRN (13:05)
[2021-11-04] MEDS ORDERED: bisacodyL 10 MG SUPP PR PRN (13:05)
[2021-11-04] MEDS ORDERED: HYDROCORTISONE ACETATE 25 MG SUPP PR PRN (13:05)
[2021-11-04] MEDS ORDERED: ACETAMINOPHEN 325 MG TAB PO PRN (13:05)
--- NOTE | 2021-11-04 13:09 | Delivery Summary ---
Vaginal Delivery Summary Date of Service November 04, 2021 Vaginal Delivery Summary Delivery Note History synopsis: Patient is a 36-year-old -0-1-0 who is admitted at 38 weeks and 2 days for spontaneous rupture of membranes. She was started on oxytocin for augmentation, made good progression, and was 9 cm earlier this morning. She was rechecked and found to be complete at 1155. She pushed with nursing and I was called for delivery Delivery Summary: Patient was placed in the dorsal lithotomy position. She was prepped and draped in the usual sterile fashion. Upon maternal pushing the head was delivered atraumatically followed by the anterior shoulders, posterior shoulders then the remainder of the infants body. The infants mouth and nose were bulb suction below the level of the perineum. A male infant was delivered [id number], weight pending with APGARS of 9 at 1 minute and 9 at 5 minutes. The umbilical cord was clamped times two and cut after 1 minute of delayed cord clamping The infant was handed off to the awaiting nursing staff. Cord blood gases were obtained. The placenta delivered intact with three vessel cord. . Placenta was sent to pathology (hold). Thirty units of Pitocin were added to the IV fluid and allowed to run freely. Uterine massage was performed until uterus was deemed firm. Upon inspection of the perineum, vagina and cervix were intact. Bilateral superficial labial lacerations were repaired with 3-0 Vicryl in a running fashion to create hemostasis. There was also noted to be first-degree laceration that was repaired with 3-0 Vicryl in a [id number] fashion creating good hemostasis. Upon re-inspection the patient was hemostatic. Uterus again massaged and found to be firm. Needle and sponge counts were correct. Patient was stable and allowed to recover in L&D room. was stable and remained in room with mother in the Family Care Unit.
--- NOTE | 2021-11-04 13:47 | Anesthesia Procedure Note ---
Date of Service November 04, 2021 Anesthesia Post Epidural Note Vital Signs Vital Signs: Temp Pulse Resp BP Pulse Ox 97.7 F 69 18 107/59 L 98 11/04/21 11:00 11/04/21 13:33 11/04/21 11:30 11/04/21 13:33 11/04/21 12:46 Notes Mental Status: alert / awake / arousable and participated in evaluation Nausea / Vomiting: adequately controlled Pain: adequately controlled Airway Patency, RR, SpO2: stable & adequate BP & HR: stable & adequate Hydration State: stable & adequate Neuraxial Anesthesia: was administered and sensory block is resolving Anesthetic Complications: no major complications apparent and Pt Satisfied with anesthetic care Epidural: Removed without complications and With tip intact
[2021-11-04] MEDS: IBUPROFEN 600 MG TAB PO PRN (19:39)
[2021-11-05] MEDS: IBUPROFEN 600 MG TAB PO PRN (03:17)
[2021-11-05 06:38] LABS: Hematocrit (blood only) 31.4 % (37-47); Hemoglobin 10.3 g/dL (12.0-16.0); Mean Corpuscular Hemoglobin 29.7 pg (25-34); Mean Corpuscular Hgb Conc 32.8 g/dL (32-36); Mean Corpuscular Volume 90.5 fL (80-100); Mean Platelet Volume 11.9 fL (7.4-10.4); Platelet Count 156 K/uL (130-400); RDW Coefficient of Variation 14.4 % (11.5-14.5); RDW Standard Deviation 47.4 fL (36.4-46.3); Red Blood Count 3.47 M/uL (4.2-5.4); White Blood Count 12.76 K/uL (4.8-10.8)
[2021-11-05] MEDS: PRENATAL VITAMIN 1 TAB PO SCH (08:50)
[2021-11-05] MEDS: DOCUSATE SODIUM 100 MG CAP PO SCH ×2 (08:50→20:31)
--- NOTE | 2021-11-05 09:10 | Obstetrical Progress Note ---
Date of Service November 05, 2021 Assessment & Plan (1) Normal course: Continue routine PP course Anticipate d/c home tomorrow Subjective Ambulation: ambulating normally Voiding: no voiding problems Passing Gas:: Yes Diet Tolerance:: regular diet Lochia:: Moderate Feeding Type:: breast feeding Current Pain Level(1-10): 1 Plan for home tomorrow since baby will not be discharged today. No other complaints Physical Exam Constitutional WD/WN, vitals as above Respiratory normal respiratory effort, lungs clear to auscultation Cardiovascular RRR, no murmur, no edema Gastrointestinal (Abdomen) normal bowel sounds, soft, nontender, no hepatosplenomegaly Results & Data ([facility]) Vital Signs (Past 12 Hours) Vital Signs Temp Pulse Resp BP Pulse Ox 11/05/21 03:25 36.4 C L 89 18 116/70 99 11/05/21 00:00 36.5 C 85 18 95/62 L 97 Laboratory Results H/H 10.3/31.4%
[2021-11-05] MEDS ORDERED: bisacodyL 5 MG TABEC PO SCH (20:00)
[2021-11-06] MEDS: IBUPROFEN 600 MG TAB PO PRN (02:56)
[2021-11-06 07:16] LABS: Hematocrit (blood only) 30.7 % (37-47); Hemoglobin 9.9 g/dL (12.0-16.0)
--- NOTE | 2021-11-06 08:16 | Obstetrical Progress Note ---
Date of Service November 06, 2021 Assessment & Plan Admission and Anticipated Discharge Date Admission Date: November 03, 2021 Subjective Patient is seen and examined. She feels well, no complaints. Ambulating without dizziness Voiding without difficulty Tolerating regular diet with out N&V Bleeding is minimal No fever/ chills/ CP/ SOB/ N&V/ Leg pain Breast feeding without problems Vital Signs Temp Pulse Resp BP Pulse Ox 11/06/21 07:20 36.4 C L 80 22 101/64 98 11/05/21 23:30 36.5 C 85 18 108/74 11/05/21 20:30 36.8 C 84 84 H 123/82 11/05/21 13:05 36.3 C L 97 H 18 111/74 98 Lab Results 11/03/21 11/03/21 11/03/21 Range/Units 15:36 15:36 15:36 WBC 7.37 (4.8-10.8) K/uL RBC 3.90 L (4.2-5.4) M/uL Hgb 11.8 L (12.0-16.0) g/dL Hct 35.1 L (37-47) % MCV 90.0 (80-100) fL MCH 30.3 (25-34) pg MCHC 33.6 (32-36) g/dL RDW Std Deviation 47.1 H (36.4-46.3) fL RDW Coeff of Brenda 14.2 (11.5-14.5) % Plt Count 183 (130-400) K/uL MPV 11.4 H (7.4-10.4) fL Sodium 135 L (136-145) mmol/L Potassium 4.2 (3.5-5.1) mmol/L Chloride 106 (98-107) mmol/L Carbon Dioxide 23 (21-32) mmol/L Anion Gap 6 (3-11) BUN 20 (6-23) mg/dl Creatinine 0.85 (0.6-1.2) mg/dl Est Cr Clr Drug Dosing 114.7 ml/min Est GFR ( Amer) 102.9 ml/min Est GFR (Non-Af Amer) 88.8 ml/min BUN/Creatinine Ratio 23.5 H (10-20) Glucose 90 (70-99(Fasting)) mg/dl POC Glucose (70-99) mg/dl Calcium 8.8 (8.5-10.1) mg/dl Total Bilirubin 0.2 (0.2-1.0) mg/dl AST 12 L (13-39) U/L ALT 9 (7-52) U/L Alkaline Phosphatase 88 (34-104) U/L Total Protein 6.4 (6.0-8.3) gm/dl Albumin 3.3 L (3.4-5.0) gm/dl Globulin 3.1 (2.5-4.0) gm/dl Albumin/Globulin Ratio 1.1 (0.9-2) SARS-CoV-2, RNA, NAAT (NEGATIVE) Blood Type A Positive Antibody Screen NEGATIVE 11/03/21 11/03/21 11/04/21 Range/Units 15:50 19:46 00:41 WBC (4.8-10.8) K/uL RBC (4.2-5.4) M/uL Hgb (12.0-16.0) g/dL Hct (37-47) % MCV (80-100) fL MCH (25-34) pg MCHC (32-36) g/dL RDW Std Deviation (36.4-46.3) fL RDW Coeff of Brenda (11.5-14.5) % Plt Count (130-400) K/uL MPV (7.4-10.4) fL Sodium (136-145) mmol/L Potassium (3.5-5.1) mmol/L Chloride (98-107) mmol/L Carbon Dioxide (21-32) mmol/L Anion Gap (3-11) BUN (6-23) mg/dl Creatinine (0.6-1.2) mg/dl Est Cr Clr Drug Dosing ml/min Est GFR ( Amer) ml/min Est GFR (Non-Af Amer) ml/min BUN/Creatinine Ratio (10-20) Glucose (70-99(Fasting)) mg/dl POC Glucose 79 68 L* (70-99) mg/dl Calcium (8.5-10.1) mg/dl Total Bilirubin (0.2-1.0) mg/dl AST (13-39) U/L ALT (7-52) U/L Alkaline Phosphatase (34-104) U/L Total Protein (6.0-8.3) gm/dl Albumin (3.4-5.0) gm/dl Globulin (2.5-4.0) gm/dl Albumin/Globulin Ratio (0.9-2) SARS-CoV-2, RNA, NAAT NEGATIVE (NEGATIVE) Blood Type Antibody Screen 11/04/21 11/04/21 11/04/21 Range/Units 01:06 05:22 07:25 WBC (4.8-10.8) K/uL RBC (4.2-5.4) M/uL Hgb (12.0-16.0) g/dL Hct (37-47) % MCV (80-100) fL MCH (25-34) pg MCHC (32-36) g/dL RDW Std Deviation (36.4-46.3) fL RDW Coeff of Brenda (11.5-14.5) % Plt Count (130-400) K/uL MPV (7.4-10.4) fL Sodium (136-145) mmol/L Potassium (3.5-5.1) mmol/L Chloride (98-107) mmol/L Carbon Dioxide (21-32) mmol/L Anion Gap (3-11) BUN (6-23) mg/dl Creatinine (0.6-1.2) mg/dl Est Cr Clr Drug Dosing ml/min Est GFR ( Amer) ml/min Est GFR (Non-Af Amer) ml/min BUN/Creatinine Ratio (10-20) Glucose (70-99(Fasting)) mg/dl POC Glucose 81 80 82 (70-99) mg/dl Calcium (8.5-10.1) mg/dl Total Bilirubin (0.2-1.0) mg/dl AST (13-39) U/L ALT (7-52) U/L Alkaline Phosphatase (34-104) U/L Total Protein (6.0-8.3) gm/dl Albumin (3.4-5.0) gm/dl Globulin (2.5-4.0) gm/dl Albumin/Globulin Ratio (0.9-2) SARS-CoV-2, RNA, NAAT (NEGATIVE) Blood Type Antibody Screen 11/04/21 11/04/21 11/04/21 Range/Units 08:24 09:25 10:36 WBC (4.8-10.8) K/uL RBC (4.2-5.4) M/uL Hgb (12.0-16.0) g/dL Hct (37-47) % MCV (80-100) fL MCH (25-34) pg MCHC (32-36) g/dL RDW Std Deviation (36.4-46.3) fL RDW Coeff of Brenda (11.5-14.5) % Plt Count (130-400) K/uL MPV (7.4-10.4) fL Sodium (136-145) mmol/L Potassium (3.5-5.1) mmol/L Chloride (98-107) mmol/L Carbon Dioxide (21-32) mmol/L Anion Gap (3-11) BUN (6-23) mg/dl Creatinine (0.6-1.2) mg/dl Est Cr Clr Drug Dosing ml/min Est GFR ( Amer) ml/min Est GFR (Non-Af Amer) ml/min BUN/Creatinine Ratio (10-20) Glucose (70-99(Fasting)) mg/dl POC Glucose 86 82 82 (70-99) mg/dl Calcium (8.5-10.1) mg/dl Total Bilirubin (0.2-1.0) mg/dl AST (13-39) U/L ALT (7-52) U/L Alkaline Phosphatase (34-104) U/L Total Protein (6.0-8.3) gm/dl Albumin (3.4-5.0) gm/dl Globulin (2.5-4.0) gm/dl Albumin/Globulin Ratio (0.9-2) SARS-CoV-2, RNA, NAAT (NEGATIVE) Blood Type Antibody Screen 11/04/21 11/05/21 11/06/21 Range/Units 11:27 06:08 06:58 WBC 12.76 H (4.8-10.8) K/uL RBC 3.47 L (4.2-5.4) M/uL Hgb 10.3 L 9.9 L (12.0-16.0) g/dL Hct 31.4 L 30.7 L (37-47) % MCV 90.5 (80-100) fL MCH 29.7 (25-34) pg MCHC 32.8 (32-36) g/dL RDW Std Deviation 47.4 H (36.4-46.3) fL RDW Coeff of Brenda 14.4 (11.5-14.5) % Plt Count 156 (130-400) K/uL MPV 11.9 H (7.4-10.4) fL Sodium (136-145) mmol/L Potassium (3.5-5.1) mmol/L Chloride (98-107) mmol/L Carbon Dioxide (21-32) mmol/L Anion Gap (3-11) BUN (6-23) mg/dl Creatinine (0.6-1.2) mg/dl Est Cr Clr Drug Dosing ml/min Est GFR ( Amer) ml/min Est GFR (Non-Af Amer) ml/min BUN/Creatinine Ratio (10-20) Glucose (70-99(Fasting)) mg/dl POC Glucose 74 (70-99) mg/dl Calcium (8.5-10.1) mg/dl Total Bilirubin (0.2-1.0) mg/dl AST (13-39) U/L ALT (7-52) U/L Alkaline Phosphatase (34-104) U/L Total Protein (6.0-8.3) gm/dl Albumin (3.4-5.0) gm/dl Globulin (2.5-4.0) gm/dl Albumin/Globulin Ratio (0.9-2) SARS-CoV-2, RNA, NAAT (NEGATIVE) Blood Type Antibody Screen PE: General: Alert, orientedx3, NAD Abd: soft, NT, fundus firm, below Umbilicus Perineum intact, Lochia rubra minimal Ext; NT, no edema AP: 36 yo s/p , ppd# 2 VSS Afebrile doing well Continue routine care All questions were answered Discussed when to call D/C home , f/u in office Results & Data ([facility]) Vital Signs (Past 12 Hours) Vital Signs Temp Pulse Resp BP Pulse Ox 11/06/21 07:20 36.4 C L 80 22 101/64 98 11/05/21 23:30 36.5 C 85 18 108/74 11/05/21 20:30 36.8 C 84 84 H 123/82
[2021-11-06] MEDS: PRENATAL VITAMIN 1 TAB PO SCH (08:54)
[2021-11-06] MEDS: DOCUSATE SODIUM 100 MG CAP PO SCH (08:54)
== END 2021-11-06 12:25 | disposition home or self-care (01) | DRG 807 ==
LOC: OPB 14:20 → 4S1 14:22 → 4S3 11-04 16:31 → 4E2 11-04 17:20